=== PATIENT | male | born 1995 | race Caucasian/White ===

== ENCOUNTER 2021-05-25 11:27 | Emergency (ER) | payer BC ==
[~2021-05-25] VITALS: Ht 182.9 cm; Wt 63.7 kg
[2021-05-25] MEDS ORDERED: AUGMENTIN 875-1 EAC1 PO (11:43)
[2021-05-25] MEDS ORDERED: ULTRAM50 M1 PO (11:43)
[2021-05-25 12:08] LABS: URINE WBC 0 /hpf (0-3)
[2021-05-25 12:22] LABS: BASO # 0.01 (0.02-0.10); EOS # 0.02 (0.04-0.40); EOS % 0.3 % (0.0-4.0); HEMATOCRIT 48.8 % (42.0-52.0); HEMOGLOBIN 16.3 g/dL (13.5-18.0); LYMPH# 1.12 (1.50-4.00); MEAN CELL VOLUME 94 fl (78-100); MEAN CORPUSCULAR HEMOGLOBIN 31 pg (27-31); MEAN CORPUSCULAR HGB CONC 33 g/dL (33-37); MONO # 0.78 (0.20-0.80); NEU # 6.05 (1.40-6.50); PLATELET COUNT 191 K/mm3 (130-400); RED CELL DISTRIBUTION WIDTH 11.8 % (11.5-14.5)
[2021-05-25 12:34] LABS: ALBUMIN 4.6 g/dL (3.5-5.0)
[2021-05-25 12:35] LABS: POTASSIUM 3.7 mmol/L (3.5-5.1); SODIUM 140 mmol/L (136-145)
[2021-05-25 12:36] LABS: CALCIUM 10.1 mg/dL (8.3-10.5)
[2021-05-25 12:37] LABS: GLUCOSE 88 mg/dL (75-110); TOTAL PROTEIN 7.9 g/dL (6.4-8.3)
[2021-05-25 12:38] LABS: CARBON DIOXIDE 25 mmol/L (22-29)
[2021-05-25 12:39] LABS: TOTAL BILIRUBIN 1.9 mg/dL (0.2-1.2)
[2021-05-25 12:42] LABS: AST-SGOT 19 U/L (5-34)
[2021-05-25 12:44] LABS: ALT/SGPT 11 U/L (0-55); LIPASE 44 U/L (8-78)
[2021-05-25 12:51] LABS: ALCOHOL IN-HOUSE < 10 mg/dL (<10)
[2021-05-25 13:04] LABS: URINE APPEARANCE CLEAR; URINE BILIRUBIN NEGATIVE (NEGATIVE); URINE BLOOD NEGATIVE (NEGATIVE); URINE COLOR YELLOW; URINE GLUCOSE NEGATIVE (NEGATIVE); URINE KETONE NEGATIVE (NEGATIVE); URINE LEUKOCYTE ESTERASE NEGATIVE (NEGATIVE); URINE NITRATE NEGATIVE (NEGATIVE); URINE PROTEIN(semi-quant) NEGATIVE (NEGATIVE); URINE UROBILINOGEN NORMAL (NORMAL)
[2021-05-25] MEDS ORDERED: PRILOSEC 20MG20 MG PO (14:30)
[2021-05-25 14:41] VITALS: BP 118/72
== END 2021-05-25 14:44 | disposition home or self-care (01) ==
LOC: ED 11:27
PROVIDERS: Nurse Practitioner
DX: F41.9 Anxiety disorder, unspecified (principal); F10.139 Alcohol abuse with withdrawal, unspecified; R79.89 Other specified abnormal findings of blood chemistry; Z98.818 Other dental procedure status
CPT/HCPCS: J7030; Q9967

== ENCOUNTER 2021-05-30 18:08 | Emergency (ER) | payer BC ==
[~2021-05-30] VITALS: Ht 182.9 cm; Wt 63.7 kg
[~2021-05-30 18:08] MED LIST: AUGMENTIN 875-1 EAC1 PO; PRILOSEC 20MG20 MG PO; ULTRAM50 M1 PO
[2021-05-30 19:10] LABS: BASO # 0.03 (0.02-0.10); EOS # 0.06 (0.04-0.40); EOS % 0.7 % (0.0-4.0); HEMATOCRIT 45.3 % (42.0-52.0); HEMOGLOBIN 15.4 g/dL (13.5-18.0); LYMPH# 2.58 (1.50-4.00); MEAN CELL VOLUME 92 fl (78-100); MEAN CORPUSCULAR HEMOGLOBIN 31 pg (27-31); MEAN CORPUSCULAR HGB CONC 34 g/dL (33-37); MEAN PLATELET VOLUME 10.2 fl (7.4-10.4); MONO # 0.79 (0.20-0.80); NEU # 4.88 (1.40-6.50); PLATELET COUNT 192 K/mm3 (130-400); RED CELL DISTRIBUTION WIDTH 11.7 % (11.5-14.5); WHITE BLOOD COUNT 8.4 K/mm3 (4.8-10.8)
[2021-05-30 19:28] LABS: ALBUMIN 4.4 g/dL (3.5-5.0); POTASSIUM 3.7 mmol/L (3.5-5.1); SODIUM 141 mmol/L (136-145)
[2021-05-30 19:29] LABS: CALCIUM 10.4 mg/dL (8.3-10.5)
[2021-05-30 19:30] LABS: GLUCOSE 90 mg/dL (75-110); TOTAL PROTEIN 7.8 g/dL (6.4-8.3)
[2021-05-30 19:31] LABS: CARBON DIOXIDE 24 mmol/L (22-29)
[2021-05-30 19:32] LABS: TOTAL BILIRUBIN 0.4 mg/dL (0.2-1.2)
[2021-05-30 19:36] LABS: AST-SGOT 23 U/L (5-34)
[2021-05-30 19:37] LABS: ALT/SGPT 16 U/L (0-55)
[2021-05-30 19:52] LABS: TROPONIN-I < 0.03 ng/mL (<0.030)
[2021-05-30 21:02] VITALS: BP 124/58
== END 2021-05-30 21:06 | disposition home or self-care (01) ==
LOC: ED 18:08
PROVIDERS: Physician Assistant
DX: F10.239 Alcohol dependence with withdrawal, unspecified (principal); F41.9 Anxiety disorder, unspecified; M79.10 Myalgia, unspecified site; Z20.822 Contact with and (suspected) exposure to COVID-19; Z87.891 Personal history of nicotine dependence
CPT/HCPCS: J1885

== ENCOUNTER 2024-08-16 16:58 | Emergency (ER) | payer SELFPAY ==
[~2024-08-16] VITALS: Ht 182.9 cm; Wt 71.6 kg
[~2024-08-16 16:58] MED LIST changes: +CEPHALEXIN500 M1 PO; +NORCO 325 MG-51 TA1 PO; +PANTOPRAZOLE SO40 MG PO
[2024-08-16 17:35] LABS: BASO # 0.01 K/mm3 (0.02-0.10); EOS # 0.01 K/mm3 (0.04-0.40); EOS % 0.1 % (0.0-4.0); HEMATOCRIT 42.8 % (42.0-52.0); HEMOGLOBIN 14.6 g/dL (13.5-18.0); LYMPH# 0.95 K/mm3 (1.50-4.00); MEAN CELL VOLUME 90 fl (78-100); MEAN CORPUSCULAR HEMOGLOBIN 31 pg (27-31); MEAN CORPUSCULAR HGB CONC 34 g/dL (33-37); MONO # 0.62 K/mm3 (0.20-0.80); PLATELET COUNT 186 K/mm3 (130-400); RED BLOOD COUNT 4.77 M/mm3 (4.20-5.60); RED CELL DISTRIBUTION WIDTH 11.5 % (11.5-14.5); WHITE BLOOD COUNT 7.8 K/mm3 (4.8-10.8)
[2024-08-16 17:38] LABS: ALBUMIN 4.5 g/dL (3.5-5.0)
[2024-08-16 17:40] LABS: CALCIUM 9.3 mg/dL (8.3-10.5)
[2024-08-16 17:41] LABS: TOTAL PROTEIN 7.4 g/dL (6.4-8.3)
[2024-08-16 17:43] LABS: TOTAL BILIRUBIN 0.6 mg/dL (0.2-1.2)
[2024-08-16 17:53] LABS: URINE APPEARANCE CLEAR (CLEAR); URINE BILIRUBIN NEGATIVE (NEGATIVE); URINE COLOR LIGHT YELLOW (YELLOW); URINE GLUCOSE NEGATIVE (NEGATIVE); URINE KETONE NEGATIVE (NEGATIVE); URINE NITRATE NEGATIVE (NEGATIVE); URINE PROTEIN(semi-quant) NEGATIVE (NEGATIVE)
[2024-08-16 17:54] LABS: URINE BLOOD TRACE (NEGATIVE); URINE LEUKOCYTE ESTERASE TRACE (NEGATIVE); URINE WBC 0-1 /hpf (0-3)
[2024-08-16] MEDS ORDERED: Iohexol 300 - 100 ML VIAL IV ONE (18:35)
[2024-08-16 19:27] VITALS: BP 125/66
== END 2024-08-16 19:29 | disposition home or self-care (01) ==
LOC: ED 16:58
PROVIDERS: Physician Assistant
DX: A08.4 Viral intestinal infection, unspecified (principal)
CPT/HCPCS: Q9967

== ENCOUNTER → 2024-11-01 | Outpatient (CLI) | payer SELFPAY ==
[~2024-11-01] MED LIST changes: +Iohexol 300 - 100 ML VIAL IV ONE; +NS 100 ML IV ONE
== END ==
LOC: RAD 12:55
DX: J84.10 Pulmonary fibrosis, unspecified (principal)
CPT/HCPCS: Q9967

== ENCOUNTER 2024-12-31 16:51 | Emergency (ER) | payer SELFPAY ==
[~2024-12-31] VITALS: Ht 182.9 cm; Wt 77.3 kg
[~2024-12-31 16:51] MED LIST changes: -Iohexol 300 - 100 ML VIAL IV ONE; -NS 100 ML IV ONE; +PREDNISONE20 MG PO
[2024-12-31 17:18] LABS: BASO # 0.01 K/mm3 (0.02-0.10); EOS # 0.04 K/mm3 (0.04-0.40); EOS % 0.4 % (0.0-4.0); HEMATOCRIT 48.4 % (42.0-52.0); HEMOGLOBIN 16.4 g/dL (13.5-18.0); LYMPH# 1.57 K/mm3 (1.50-4.00); MEAN CELL VOLUME 88 fl (78-100); MEAN CORPUSCULAR HEMOGLOBIN 30 pg (27-31); MEAN CORPUSCULAR HGB CONC 34 g/dL (33-37); MEAN PLATELET VOLUME 9.7 fl (7.4-10.4); MONO # 0.65 K/mm3 (0.20-0.80); NEU # 7.55 K/mm3 (1.40-6.50); PLATELET COUNT 230 K/mm3 (130-400); RED BLOOD COUNT 5.51 M/mm3 (4.20-5.60); RED CELL DISTRIBUTION WIDTH 11.6 % (11.5-14.5); WHITE BLOOD COUNT 9.9 K/mm3 (4.8-10.8)
[2024-12-31 17:25] LABS: ALBUMIN 4.7 g/dL (3.5-5.0)
[2024-12-31 17:27] LABS: TOTAL PROTEIN 8.1 g/dL (6.4-8.3)
[2024-12-31 17:29] LABS: TOTAL BILIRUBIN 0.4 mg/dL (0.2-1.2)
[2024-12-31 19:00] VITALS: BP 116/70
== END 2024-12-31 19:01 | disposition home or self-care (01) ==
LOC: ED 16:51
PROVIDERS: Family Medicine
DX: R07.2 Precordial pain (principal); R00.0 Tachycardia, unspecified

== ENCOUNTER 2025-01-01 12:21 | Emergency (ER) | payer SELFPAY ==
[~2025-01-01] VITALS: Ht 182.9 cm; Wt 77.3 kg
[2025-01-01 14:02] VITALS: BP 123/69
== END 2025-01-01 14:02 | disposition home or self-care (01) ==
LOC: ED 12:21
DX: R07.2 Precordial pain (principal)